=== PATIENT | female | born 1975 | race Caucasian/White ===

== ENCOUNTER 2017-05-07 17:33 | Emergency (ER) | payer OTHER ==
[2017-05-07] MEDS ORDERED: Zofran 4 MG/2 ML VIAL IV ONE (18:29)
[2017-05-07] MEDS ORDERED: MORPHINE SULFATE 2 MG INJ IV ONE (18:29)
--- NOTE | 2017-05-07 18:35 | ERPHSYRPT ---
- History of Present Illness Time Seen by Provider: 05/07/17 18:32 Historian: patient Exam Limitations: no limitations Patient Subjective Stated Complaint: PT STATES FOR THE LAST 3 DAYS SHE HAS SEVERE EPIGASTRIC PAIN THAT SHE DESCRIBES "EPISODES" STATES SHE CAN FEEL THEM COMING ON AND THEY LAST 15 MINS, REPORTS NAUSEA, VOMITING, DIAPHORESIS, BELCHING, AND PAIN THAT RADIATES TO HER RIGHT SHOULDER. STATES SHE HAS HX OF GASTRIC BYPASS AND WORRIES HER GALLBLADDER COULD BE AN ISSUE. Triage Nursing Assessment: PT IS AOX3, AMBULATORY TO COT WITH NO DIFFICULTIES, RESPS ARE EASY AND NON LABORED, PULSES ARE STRONG AND EQUAL , SKIN IS PWD, ABDOMEN IS SOFT AND NON TENDER, BOWEL SOUNDS ARE PRESENT AND NORMOACTIVEX4, INTERMITTENT PAIN LOCALIZED TO THE EPIGASTRIC REGION WITH RADIATION TO THE RIGHT SHOULDER BLADE. Physician History: 41 y/o female with history of gastric bypass comes to the ER with complaints of epigastric abdominal pain that started 3 days ago. Pt describes the pain as sharp, intermittent, 6/10, with radiation to back and pt has not taken any pain meds. Pt also admits to having nausea and a few episodes of vomiting. Pt denies any fever, chills, constipation, diarrhea, bloody stools or urinary symptoms. Timing/Duration: day(s) (3 days) Activities at Onset: none Quality: sharpness Abdominal Pain Onset Location: epigastric Pain Radiation: back Severity of Pain-Max: moderate Severity of Pain-Current: moderate Modifying Factors: Improves With: nothing Associated Symptoms: denies symptoms Allergies/Adverse Reactions: Penicillins Allergy (Mild, Verified 05/07/17 18:28) amoxicillin [From Augmentin] Allergy (Verified 05/07/17 18:28) clavulanic acid [From Augmentin] Allergy (Verified 05/07/17 18:28) Home Medications: Citalopram Hydrobromide [ceLEXa] 40 mg PO DAILY 03/12/17 [History] Sumatriptan Succinate [Imitrex] 100 mg PO .PRN 03/12/17 [History] Zolpidem Tartrate [Ambien] 10 mg PO HS 03/12/17 [History] Diclofenac Sodium 75 mg PO BID 05/07/17 [History] Topiramate [Topamax] 50 mg PO BID 05/07/17 [History] Hx Tetanus, Diphtheria Vaccination/Date Given: Yes Hx Influenza Vaccination/Date Given: No Hx Pneumococcal Vaccination/Date Given: No Immunizations Up to Date: Yes - Review of Systems Constitutional: No Fever, No Chills Eyes: No Symptoms Ears, Nose, & Throat: No Symptoms Respiratory: No Cough, No Dyspnea Cardiac: No Chest Pain, No Edema, No Syncope Abdominal/Gastrointestinal: Abdominal Pain, Nausea, Vomiting, No Diarrhea Genitourinary Symptoms: No Dysuria Musculoskeletal: No Back Pain, No Neck Pain Skin: No Rash Neurological: No Dizziness, No Focal Weakness, No Sensory Changes Psychological: No Symptoms Endocrine: No Symptoms All Other Systems: Reviewed and Negative - Past Medical History Pertinent Past Medical History: Yes Neurological History: Migraines ENT History: No Pertinent History Cardiac History: No Pertinent History Respiratory History: No Pertinent History Endocrine Medical History: No Pertinent History Musculoskeletal History: No Pertinent History GI Medical History: No Pertinent History History: No Pertinent History Psycho-Social History: Depression Female Reproductive Disorders: No Pertinent History - Past Surgical History Past Surgical History: Yes Neuro Surgical History: No Pertinent History Cardiac: No Pertinent History Respiratory: No Pertinent History Gastrointestinal: Other Genitourinary: No Pertinent History Musculoskeletal: No Pertinent History Female Surgical History: Section Other Surgical History: uterine ablation. bariatric surgery 2007 - Social History Smoking Status: Never smoker Exposure to second hand smoke: No Drug Use: none Patient Lives Alone: No - Female History Hx Last Menstrual Period: THERMAL ABLATION Hx Now: No - Nursing Vital Signs Nursing Vital Signs: Initial Vital Signs Temperature 98.7 F Temperature Source Oral Pulse Rate 64 Respiratory Rate 16 Blood Pressure [Right Arm] 150/79 Pain Intensity 4 - Physical Exam General Appearance: no apparent distress, alert Eye Exam: PERRL/EOMI, eyes nml inspection Ears, Nose, Throat Exam: normal ENT inspection, pharynx normal, moist mucous membranes Neck Exam: normal inspection, non-tender, supple, full range of motion Respiratory Exam: normal breath sounds, lungs clear, No respiratory distress Cardiovascular Exam: regular rate/rhythm, normal heart sounds Gastrointestinal/Abdomen Exam: soft, normal bowel sounds, tenderness, No distention, No mass Back Exam: normal inspection, normal range of motion, No CVA tenderness, No vertebral tenderness Extremity Exam: normal inspection, normal range of motion, pelvis stable Neurologic Exam: alert, oriented x 3, cooperative, normal mood/affect, nml cerebellar function, sensation nml, No motor deficits Skin Exam: normal color, warm, dry SpO2: 99 Oxygen Delivery: Room Air - Course Nursing assessment & vital signs reviewed: Yes Ordered Tests: Active Orders 24 hr Category Date Time Status EKG-ER Only STAT Care 05/07/17 18:43 Active IV Insertion STAT Care 05/07/17 18:29 Active GALLBLADDER [US] Stat Exams 05/07/17 18:29 Taken AMYLASE Stat Lab 05/07/17 18:43 Completed CBCD [CBC W DIFF] Stat Lab 05/07/17 18:43 Completed CMP Stat Lab 05/07/17 18:43 Completed LIPASE Stat Lab 05/07/17 18:43 Completed TROPONIN Stat Lab 05/07/17 18:46 Completed Medication Summary Discontinued Medications Generic Name Dose Route Start Last Admin Trade Name Madhav PRN Reason Stop Dose Admin Morphine Sulfate 2 mg 05/07/17 18:29 05/07/17 18:39 Morphine Sulfate 2 Mg Inj IV 05/07/17 18:30 2 mg STAT ONE Administration Morphine Sulfate Confirm 05/07/17 18:37 Morphine Sulfate 2 Mg Inj Administered 05/07/17 18:38 Dose 2 mg .ROUTE .STK-MED ONE Ondansetron HCl 4 mg 05/07/17 18:29 05/07/17 18:38 Zofran 4 Mg/2 Ml Vial IV 05/07/17 18:30 4 mg STAT ONE Administration Ondansetron HCl Confirm 05/07/17 18:37 Zofran 4 Mg/2 Ml Vial Administered 05/07/17 18:38 Dose 4 mg .ROUTE .STK-MED ONE Lab/Rad Data: Laboratory Result Diagrams 05/07/17 18:43 05/07/17 18:43 Laboratory Results 05/07/17 05/07/17 05/07/17 Range/Units 18:46 18:43 18:43 WBC 8.9 (4.0-10.5) K/mm3 RBC 4.59 (4.1-5.4) M/mm3 Hgb 10.1 L (12.0-16.0) gm/dl Hct 32.3 L (35-47) % MCV 70.4 L (78-100) fl MCH 22.0 L (26-32) pg MCHC 31.3 L (32-36) g/dl RDW 18.3 H (11.5-14.0) % Plt Count 354 (150-450) K/mm3 MPV 9.7 H (6-9.5) fl Gran % 65.7 (36.0-66.0) % Lymphocytes % 26.7 (24.0-44.0) % Monocytes % 5.7 (0.0-12.0) % Eosinophils % 1.2 (0.00-5.0) % Basophils % 0.7 (0.0-0.4) % Basophils # 0.06 (0-0.4) Sodium 140 (136-145) mEq/L Potassium 4.1 (3.5-5.1) mEq/L Chloride 106 (98-107) mEq/L Carbon Dioxide 23.0 (21-32) mEq/L Anion Gap 14.7 (5-15) MEQ/L BUN 17 (9-20) mg/dL Creatinine 0.91 (0.55-1.30) mg/dl Estimated GFR > 60 ML/MIN Glucose 92 (70-110) MG/DL Calcium 8.8 (8.5-10.1) mg/dL Total Bilirubin 0.20 (0.2-1.0) mg/dL AST 38 H (15-37) U/L ALT 36 (12-78) U/L Alkaline Phosphatase 99 (46-116) U/L Troponin I < 0.017 (0.000-0.056) ng/ml Serum Total Protein 7.5 (6.4-8.2) gm/dL Albumin 3.6 (3.4-5.0) g/dL Amylase 43 (25-115) U/L Lipase 132 (73-393) U/L - Progress Progress: improved Progress Note: 05/07/17 20:21 Pt feels better after receiving morphine, zofran and NS fluids. The abdominal US shows multiple gallstones but no signs of cholecystitis. Pt will be referred to general surgery and will be d/c home on norco and zofran - Departure Time of Disposition: 20:23 Departure Disposition: Home Clinical Impression: Gallstone Qualifiers: Cholecystitis presence: without cholecystitis Biliary obstruction: without biliary obstruction Qualified Code(s): K80.20 - Calculus of gallbladder without cholecystitis without obstruction Condition: Stable Critical Care Time: No Referrals: BEVERLY PURDY [Primary Care Provider] - JASON DELANEY MD [ACTIVE STAFF] - Instructions: Gallstones Additional Instructions: Call Dr Delaney on Wednesday for further recommendations. Return to the ER if you should have worsening abdominal pain, nausea, vomiting, fever or chills. Prescriptions: Hydrocodone/Acetaminophen [Drumright 5-325 Tablet] 1 each PO QID PRN #20 tablet PRN Reason: Pain Promethazine HCl 25 mg [Phenergan 25 mg] 25 mg PO QID PRN #20 tablet PRN Reason: Nausea/Vomiting
[2017-05-07] MEDS ORDERED: MORPHINE SULFATE 2 MG INJ ONE (18:37)
[2017-05-07] MEDS ORDERED: Zofran 4 MG/2 ML VIAL ONE (18:37)
[2017-05-07 18:50] LABS: BASOPHIL % 0.7 % (0.0-0.4); Eosinophil % 1.2 % (0.00-5.0); Granulocytes % 65.7 % (36.0-66.0); Lymphocytes % 26.7 % (24.0-44.0); Mean Cell Volume 70.4 fl (78-100); Mean Platelet Volume 9.7 fl (6-9.5); Monocytes % 5.7 % (0.0-12.0); Platelet Count 354 K/mm3 (150-450); Red Blood Count 4.59 M/mm3 (4.1-5.4); Red Cell Distribution Width 18.3 % (11.5-14.0); White Blood Count 8.9 K/mm3 (4.0-10.5)
[2017-05-07 19:23] LABS: ALBUMIN 3.6 g/dL (3.4-5.0); ALKALINE PHOSPHATASE 99 U/L (46-116); ANION GAP 14.7 MEQ/L (5-15); BLOOD UREA NITROGEN 17 mg/dL (9-20); CHLORIDE 106 mEq/L (98-107); Glucose 92 MG/DL (70-110); LIPASE 132 U/L (73-393); Potassium 4.1 mEq/L (3.5-5.1); SGOT/AST 38 U/L (15-37); SGPT/ALT 36 U/L (12-78); SODIUM 140 mEq/L (136-145); Total Protein 7.5 gm/dL (6.4-8.2)
[2017-05-07 20:11] VITALS: BP 150/79; PULSE 64; O2SAT 99
--- NOTE | 2017-05-08 08:56 | XRAY ---
Indication: Epigastric and right upper quadrant pain. Nausea and vomiting. Two-dimensional right upper quadrant abdominal sonogram performed. Comparison: None Gallbladder normally distended with a few tiny gallstones/gravel. No gallbladder wall thickening or pericholecystic fluid. Common bile duct measures 3.2 mm. Remaining visualized portions of the liver, pancreas, and right kidney sonographically unremarkable. Right kidney measures 10.7 cm in length. No ascites. Impression: Tiny gallstones/gravel. Negative for acute cholecystitis or biliary distention. Comment: Preliminary report was given.
== END 2017-05-07 20:35 | disposition home or self-care (01) ==
LOC: ED 17:33
DX: K80.20 Calculus of gallbladder without cholecystitis without obstruction (principal); R10.13 Epigastric pain; R11.2 Nausea with vomiting, unspecified; R61 Generalized hyperhidrosis; R14.2 Eructation; Z98.84 Bariatric surgery status; Z79.899 Other long term (current) drug therapy
CPT/HCPCS: 36000; 36415; 76705; 80053; 82150; 83690; 84484; 85025; 93005; 96374; 96375; 99284; J2270; J2405

== ENCOUNTER 2023-01-29 19:52 | Emergency (ER) | payer OTHER ==
[2023-01-29 20:10] VITALS: BP 182/85; O2SAT 98
--- NOTE | 2023-01-29 20:11 | ERPHSYRPT ---
- History of Present Illness Time Seen by Provider: 01/29/23 20:11 Source: patient Exam Limitations: no limitations Patient Subjective Stated Complaint: pt states I was out having dinner when I heard a loud pop in my rt knee. I know I have a torn ACL. I have know about it for a year. Triage Nursing Assessment: pt came into the er via wheelchair; pt was assist to cot; pt is axo x4; c/o rt knee pain; pt has no respiratory distress; skin PDW; strong rt pedal pulse; no swelling, bruising, or deformity present to rt knee; hypertensive Physician History: Patient presents w/ acute right knee pain for the past hour. She has a hx of acl tear 1 year ago and opted to treat nonoperatively. No MAXIMUS, knee just gave way. Pain is worse on the medial aspect, unable to bear weight. No bruising or swelling. ROM limited. Method of Injury: twisted Occurred: just prior to arrival Quality: intermittent Severity of Pain-Max: severe Severity of Pain-Current: moderate Lower Extremities Pain: knee: right Modifying Factors: Improves With: movement, other (weight bearing) Associated Symptoms: popping sensation Allergies/Adverse Reactions: Penicillins Allergy (Mild, Verified 01/29/23 19:59) amoxicillin [From Augmentin] Allergy (Verified 01/29/23 19:59) clavulanic acid [From Augmentin] Allergy (Verified 01/29/23 19:59) Home Medications: SUMAtriptan succinate [Imitrex] 100 mg PO .PRN 03/12/17 [History] Topiramate [Topamax] 50 mg PO DAILY PRN PRN 05/07/17 [History] Hx Tetanus, Diphtheria Vaccination/Date Given: Yes Hx Influenza Vaccination/Date Given: No Hx Pneumococcal Vaccination/Date Given: No Travel Risk - International Travel Have you traveled outside of the country in past 3 weeks: No - Coronavirus Screening Are you exhibiting any of the following symptoms?: No Close contact with a COVID-19 positive Pt in past 14-21 Days: No - Vaccine Status Have you recieved a Covid-19 vaccination: Yes Research Interviewer: [employer] - Review of Systems Constitutional: No Symptoms Eyes: No Symptoms Ears, Nose, & Throat: No Symptoms Respiratory: No Symptoms Cardiac: No Symptoms Abdominal/Gastrointestinal: No Symptoms Genitourinary Symptoms: No Symptoms Musculoskeletal: Injury, Joint Pain, No Deformity, No Joint Redness, No Joint Swelling Skin: No Symptoms Neurological: No Symptoms Psychological: No Symptoms Endocrine: No Symptoms Hematologic/Lymphatic: No Symptoms Immunological/Allergic: No Symptoms All Other Systems: Reviewed and Negative - Past Medical History Pertinent Past Medical History: Yes Neurological History: Migraines ENT History: No Pertinent History Cardiac History: No Pertinent History Respiratory History: No Pertinent History Endocrine Medical History: No Pertinent History Musculoskeletal History: Arthritis GI Medical History: No Pertinent History History: No Pertinent History Psycho-Social History: Depression Female Reproductive Disorders: No Pertinent History Other Medical History: Bariatric Surgery (2008), (1996) - Past Surgical History Past Surgical History: Yes Neuro Surgical History: No Pertinent History Cardiac: No Pertinent History Respiratory: No Pertinent History Gastrointestinal: Other Genitourinary: No Pertinent History Musculoskeletal: No Pertinent History Female Surgical History: Section Other Surgical History: uterine ablation. bariatric surgery 2007 - Social History Smoking Status: Never smoker Exposure to second hand smoke: No Drug Use: none Patient Lives Alone: No - Female History Hx Now: No - Nursing Vital Signs Nursing Vital Signs: Initial Vital Signs Temperature 98.3 F 01/29/23 20:01 Pulse Rate 72 01/29/23 20:01 Respiratory Rate 16 01/29/23 20:01 Blood Pressure 182/85 01/29/23 20:01 O2 Sat by Pulse Oximetry 98 01/29/23 20:01 Pain Scale Pain Intensity 0 - Physical Exam General Appearance: mild distress Knees Exam: right knee: normal inspection, no evidence of injury, bone tenderness, pain, soft tissue tenderness, other (ROM limited to 110 degrees of flexion) Neuro/Tendon Exam: normal sensation Mental Status Exam: alert, oriented x 3, cooperative Skin Exam: normal color, warm, dry SpO2 Interpretation: normal SpO2: 98 O2 Delivery: Room Air - Course Nursing assessment & vital signs reviewed: Yes - Radiology Exams Right Knee X-ray Interpretation: Interpreted by me, Negative Ordered Tests: Active Orders 24 hr Category Date Time Status KNEE (MIN 4 VIEW) Stat Exams 01/29/23 20:18 Ordered - Progress Progress: unchanged Progress Note: 01/29/23 21:01 XR showed no acute fracture or dislocation. Offered intraarticular CSI, but patient declined at this time. 4" abdirahman wrap place and crutches given. Advised to ice, elevate and f/u w/ Dr. Pascual on Wednesday. Counseled pt/family regarding: need for follow-up, rad results Medical Desision Making - Diagnostic Testing Diagnostic test were ordered, analyzed, and reviewed by me: Yes Radiological Interpretation: Interpreted by me - Risk of complications Low Risk: Low risk of morbidity from additional dx testing or treatment - Departure Departure Disposition: Home Clinical Impression: ACL tear, Right knee pain Condition: Stable Critical Care Time: No Referrals: JESUSITA GOMEZ [Primary Care Provider] - Follow up/PCP as directed GERONIMO PASCUAL [NON-STAFF PHY W/O PRIVILEGES] - Follow up/PCP as directed Instructions: Knee Pain (DC) Additional Instructions: You were evaluated in the Emergency Department today for your knee pain. Your evaluation, including X-rays of your knee, did not show signs of fractures or other acute abnormalities which require further intervention at this time. Your knee has been abdirahman wrapped and offered crutches in the ER to help your knee heal. Please rest, ice and elevate your knee, and resume normal activities as tolerated. We recommend you take 600mg ibuprofen every 6 hours or tylenol 650mg every 6 hours as needed for pain. If needed, you can alternate these medications so that you take one medication every 3 hours. For instance, at noon take ibuprofen, then at 3pm take tylenol, then at 6pm take ibuprofen. Please take your prescribed norco as directed as necessary for pain. Do not drive or take medica tions containing tylenol while taking norco. Please follow up with Dr. Pascual within three days. Return to the Emergency Department if you experience worsening or uncontrolled pain, numbness, tingling, or weakness to your legs, difficulty walking, worsening knee swelling or redness, or any other concerning symptoms. Thank you for choosing us for your care.
[2023-01-29 20:57] VITALS: PULSE 70
--- NOTE | 2023-01-30 08:06 | XRAY ---
Indication: Pain and "pop." Comparison: None 4 view right knee demonstrates minimal medial joint space narrowing and mild lateral patella tilting. No other bony, articular, or soft tissue abnormalities.
== END 2023-01-29 21:01 | disposition home or self-care (01) ==
LOC: ED 19:52
DX: S83.511D Sprain of anterior cruciate ligament of right knee, subsequent encounter (principal); M25.561 Pain in right knee; Z79.899 Other long term (current) drug therapy
CPT/HCPCS: 73564; 99282

== ENCOUNTER 2024-02-02 13:50 | Day surgery (SDC) | payer OTHER ==
[2024-02-02] MEDS ORDERED: Decadron 4 MG INJ IV ONE (13:51)
[2024-02-02] MEDS ORDERED: Sodium Chloride 0.9(Preservative Free) 10 ML IJ ONE (13:51)
[2024-02-02 14:31] LABS: HCG URINE TEST NEGATIVE (NEGATIVE)
[2024-02-02] MEDS ORDERED: Lactated Ringers 1,000 ML IV ONE (15:16)
[2024-02-02] MEDS ORDERED: DIPRIVAN 200 MG/20 ML IV ONE (15:36)
[2024-02-02] MEDS ORDERED: MORPHINE SULFATE 2 MG INJ ONE (15:59)
--- NOTE | 2024-02-02 16:35 | XRAY ---
Indication: Right L4-S1 transforaminal GUCCI. Intraoperative fluoroscopy provided for 28 seconds. 3 digital spot image submitted for interpretation demonstrates posterior needle tips projecting over the expected right L4 and L5 nerve roots. Small amount of contrast injected for needle tip placement. Correlate with intraoperative findings/report.
--- NOTE | 2024-02-02 16:37 | XRAY ---
28 seconds of fluoroscopy were used in surgery for a right L4-S1 transforaminal GUCCI.
== END 2024-02-02 16:25 | disposition home or self-care (01) ==
LOC: SDC-PAIN 13:50
PROVIDERS: ATTEND Psychiatry & Neurology Pain Medicine
DX: M54.16 Radiculopathy, lumbar region (principal)
CPT/HCPCS: 64483; 64484; 72100; 77003; 81025; J1100; J2270; J2704; Q9966